=== PATIENT | female | born 1955 | race Asian ===

== ENCOUNTER 2018-02-11 20:35 | Observation (INO) | payer OTHER ==
[~2018-02-11] VITALS: Ht 162.6 cm; Wt 61.0 kg
[2018-02-11 20:55] VITALS: BP 106/60
[2018-02-11 21:30] VITALS: BP 112/62; TEMP 99.6
[2018-02-11 21:33] LABS: PLATELET COUNT 131 K/uL (152-353)
[2018-02-11 21:38] LABS: POTASSIUM 3.3 mmol/L (3.6-5.2)
[2018-02-11 22:00] VITALS: BP 120/63; TEMP 99.5
[2018-02-12 04:00] VITALS: BP 101/57; TEMP 98.5
[2018-02-12 05:39] VITALS: BP 115/64; TEMP 99.1; Ht 162.6 cm; Wt 61.0 kg
[2018-02-12 08:00] VITALS: BP 100/53; TEMP 97.9
[2018-02-12 12:10] VITALS: BP 110/62; TEMP 98.1
[2018-02-12 16:00] VITALS: BP 102/50; TEMP 98.5
[2018-02-12] MEDS ORDERED: LETAIRIS10 MG PO (16:17)
[2018-02-12] MEDS ORDERED: REVATIO20 MG PO (16:18)
[2018-02-12] MEDS ORDERED: SPIRONOLACT25 MG PO ×2 (16:19→16:21)
[2018-02-12] MEDS ORDERED: AMLO2.5T PO (16:19)
== END 2018-02-12 18:28 | disposition home or self-care (01) ==
LOC: ED 20:35 → MED/SURG 23:04
PROVIDERS: ADMIT Specialist
DX: I27.20 Pulmonary hypertension, unspecified (principal); R05 Cough; R00.0 Tachycardia, unspecified; R06.02 Shortness of breath
CPT/HCPCS: 36415; 36600; 80048; 82805; 83735; 83880; 84100; 84484; 85027; 94640; 94664; 94760; 96367; 96374; 99220; 99284; G0378; J0696; J2930

== ENCOUNTER 2018-06-22 15:39 | Outpatient (CLI) | payer OTHER ==
[~2018-06-22 15:39] MED LIST: AMLO2.5T PO; LETAIRIS10 MG PO; REVATIO20 MG PO; SPIRONOLACT25 MG PO
== END 2018-06-22 23:35 | disposition home or self-care (01) ==
LOC: RAD 15:39
DX: I27.20 Pulmonary hypertension, unspecified (principal)

== ENCOUNTER 2020-09-29 18:21 | Emergency (ER) | payer OTHER ==
[~2020-09-29] VITALS: Ht 160 cm; Wt 72.6 kg
[2020-09-29 18:57] LABS: PLATELET COUNT 148 K/uL (152-353)
[2020-09-29 19:23] LABS: POTASSIUM 4.1 mmol/L (3.6-5.2); SODIUM 139 mmol/L (136-145)
[2020-09-29 21:23] VITALS: BP 124/66; TEMP 97.7
== END 2020-09-29 21:23 | disposition short-term general hospital (02) ==
LOC: ED 18:21
PROVIDERS: Family Medicine
DX: I50.9 Heart failure, unspecified (principal); J18.9 Pneumonia, unspecified organism; R00.1 Bradycardia, unspecified
CPT/HCPCS: 36415; 80053; 82550; 82553; 83605; 83880; 84484; 85027; 93005; 99285

== ENCOUNTER 2021-01-22 20:21 | Observation (INO) | payer OTHER ==
[~2021-01-22] VITALS: Ht 157.5 cm; Wt 54.1 kg
[2021-01-22] VITALS (7 sets, daily range): BP systolic 110–131; BP diastolic 59–86; TEMP 99.2
[2021-01-22 20:37] LABS: PLATELET COUNT 163 K/uL (152-353)
[2021-01-22 21:15] LABS: POTASSIUM 3.8 mmol/L (3.6-5.2)
[2021-01-23] VITALS (30 sets, daily range): BP systolic 85–138; BP diastolic 31–73; TEMP 97.8–98.4; Ht 157.5 cm; Wt 54.1 kg
--- NOTE | 2021-01-23 07:19 | NUR ---
PT ADMITTED FROM ER. WHEELCHAIRED IN. PT ADMITTED WITH CHF. CM SHOWING SINUS ALEC.
--- NOTE | 2021-01-23 08:29 | NUR ---
ASSISTED PT UP TO BS. PT TOLERATED WELL. NO ACUTE DISTRESS NOTED. PT DENIES ANY PROBLEMS OR PAIN AT THIS TIME.
--- NOTE | 2021-01-23 08:30 | NUR ---
COVID SWAB COLLECTED AND SENT TO LAB PER MD ORDERS.
[2021-01-23] MEDS ORDERED: FURO20TA67 PO (08:36)
[2021-01-23] MEDS ORDERED: PACERONE200 MG PO (08:37)
[2021-01-23] MEDS ORDERED: ELIQUIS5 MG PO (08:38)
[2021-01-23] MEDS ORDERED: DEXL60CA4 PO (08:39)
[2021-01-23] MEDS ORDERED: KLOR-CON M1010 MEQ PO (08:41)
[2021-01-23] MEDS ORDERED: BREO ELLIPTA 201 INH INH (08:42)
[2021-01-23] MEDS ORDERED: BUDE1AER5 INH (08:42)
--- NOTE | 2021-01-23 08:49 | NUR ---
PT NOTED TO HAVE HOME MEDS IN PINK AND GREEN PAISLEY BAG AT BS. PT ALSO NOTED TO HAVE BLACK PAIR OF GLASSES AND CELL PHONE WITH MEDICAL BILLING SERVICE, SLIP, UNDERWEAR AND SHIRT AND JACKET ALL AT THE BEDSIDE IN PT BELINGING BAG. PT ALSO HAS PURSE ON BEDSIDE.
[2021-01-23 09:02] LABS: PLATELET COUNT 103 K/uL (152-353)
[2021-01-23 09:08] LABS: POTASSIUM 3.3 mmol/L (3.6-5.2)
--- NOTE | 2021-01-23 13:27 | NUR ---
DR SOTELO CAME BY AND TIMES FOR LASIX CHANGED TO 8 AM AND 1600. ALSO VERIFIED THAT PT DID WEAR O2 AT HOME AT 2L/NC .
--- NOTE | 2021-01-23 15:08 | NUR ---
ECHO REPORT FROM DR DUNAWAY OBTAINED AND PLACED ON CHART. DR SOTELO AWARE.
--- NOTE | 2021-01-23 18:03 | NUR ---
VERIFIED WITH PT PCP PER PT IS ZANDER/KIMMIE HERE IN [place]
--- NOTE | 2021-01-23 18:14 | NUR ---
PT HAD 1000ML OF CLEAR YELLOW URINE PAST 1600 DOSE OF LASIX IV THIS EVENING. PT HAS NO CO THIS SHIFT.
--- NOTE | 2021-01-23 21:20 | NUR ---
PT AWAKE SITTING UP IN BED WITH NO DISTRESS NOTED, DENIES ANY NEEDS AT THIS TIME, RESP RATE NONLABORED, O2 IN USE VIA NC, THORACIC MEDICINE SPECIALIST IN USE, VITALS BEING MONITORED. GAVE NIGHTLY MEDICATIONS, HELD PT'S HOME B/P MED SILDENAFIL DUE TO B/P . WILL MONITOR, RAILS UP, BED IN LOW POSITION, CALL LIGHT IN REACH, ENCOURAGED TO CALL NEEDED.
[2021-01-24] VITALS (9 sets, daily range): BP systolic 93–113; BP diastolic 49–70; TEMP 97.8–98.4
--- NOTE | 2021-01-24 00:15 | NUR ---
PT AWAKE WITH NO ACUTE DISTRESS NOTED, DENIES ANY NEEDS, VITALS BEING MONITORED, O2 IN USE VIA NC, IV LOCK INTACT. PT UP TO BSC THEN BACK TO BED. WILL MONITOR CLOSELY, RAILS UP, BED IN LOW POSITION.
--- NOTE | 2021-01-24 02:00 | NUR ---
RESTING WITH EYES CLOSED, NO S/S OF PAIN OR DISTRESS NOTED, WILL MONITOR, RAILS UP, BED IN LOW POSITION.
--- NOTE | 2021-01-24 04:06 | NUR ---
RESTING IN POSITION OF COMFORT IN BED WITH EYES CLOSED, NO S/S OF PAIN OR DISTRESS NOTED, RESP RATE 18 NONLABORED, SUPERVISOR ROLLER PRINTING IN USE WITH BRADYCARDIA NOTED IN 50s, VITALS BEING MONITORED Q 1 HOUR, IV LOCK INTACT, WILL MONITOR CLOSELY, RAILS UP, BED IN LOW POSITION, CALL LIGHT IN REACH.
[2021-01-24 04:59] LABS: PLATELET COUNT 107 K/uL (152-353)
[2021-01-24 05:15] LABS: POTASSIUM 4.5 mmol/L (3.6-5.2)
--- NOTE | 2021-01-24 06:26 | NUR ---
PT AWAKE SITTING UP IN BED WITH NO S/S OF ACUTE DISTRESS NOTED, DENIES ANY NEEDS, RESP RATE NONLABORED, O2 IN USE VIA NC, VITALS BEING MONITORED, CLINICAL OPERATIONS MANAGER IN USE WITH RATE OF 58, IV SITE INTACT. WILL MONITOR CLOSELY, RAILS UP, BED IN LOW POSITION.
--- NOTE | 2021-01-24 07:52 | NUR ---
DR SOTELO AT MAKING ROUNDS.
--- NOTE | 2021-01-24 10:00 | NUR ---
ALL DISCHARGE INSTRUCTIONS GIVEN AND EXPLAINED TO PT AND PT'S DAUGHTER. PT STATED SHE HAD A FOLLOW UP APPT WITH DR HUMMEL TODAY IN [facility].. INSTRUCTED PT TO KEEP THAT APPT. DAUGHTER IS AWARE.
--- NOTE | 2021-01-24 10:10 | NUR ---
PT LEFT VIA WC WITH DAUGHTER. PT'S HOME MEDS AND SHOES, CELLPHONE AND HEALTH MANAGER AND CLOTHES RETURNED TO PT . HOME MEDS IN PINK AND GREEN BAG RETURNED TO HER AT TIME OF DISCHARGE. NO DISTRESS OR PROBLEMS NOTED AT TIME OF DISCHARGE.
== END 2021-01-24 10:10 | disposition home or self-care (01) ==
LOC: ED 20:21 → PCU 01-23 02:00
PROVIDERS: Internal Medicine Endocrinology, Diabetes & Metabolism; ADMIT Family Medicine; ATTEND Internal Medicine
DX: I50.23 Acute on chronic systolic (congestive) heart failure (principal); I10 Essential (primary) hypertension; I48.91 Unspecified atrial fibrillation; J90 Pleural effusion, not elsewhere classified; R18.8 Other ascites
CPT/HCPCS: 36415; 80048; 80053; 81000; 82550; 83880; 84484; 85027; 87635; 93005; 94760; 96374; 99220; 99285; G0378; J1940; J3490; U0003

== ENCOUNTER 2021-02-20 10:23 | Emergency (ER) | payer OTHER ==
[~2021-02-20] VITALS: Ht 157.5 cm; Wt 56.7 kg
[~2021-02-20 10:23] MED LIST changes: +BREO ELLIPTA 201 INH INH; +BUDE1AER5 INH; +DEXL60CA4 PO; +ELIQUIS5 MG PO; +FURO20TA67 PO; +KLOR-CON M1010 MEQ PO; +PACERONE200 MG PO
[2021-02-20 10:26] VITALS: TEMP 97.1
[2021-02-20 11:00] LABS: POTASSIUM 4.2 mmol/L (3.6-5.2); SODIUM 141 mmol/L (136-145)
[2021-02-20 11:01] LABS: PLATELET COUNT 121 K/uL (152-353)
[2021-02-20 12:40] VITALS: BP 117/71
== END 2021-02-20 13:08 | disposition home or self-care (01) ==
LOC: ED 10:23
PROVIDERS: Family Medicine
DX: I50.9 Heart failure, unspecified (principal); R10.30 Lower abdominal pain, unspecified; Z20.822 Contact with and (suspected) exposure to COVID-19
CPT/HCPCS: 36415; 80053; 82150; 82550; 83690; 83880; 84484; 85027; 85379; 87635; 93005; 94664; 96374; 96375; 99284; J1940; J2930; Q9963; U0003

== ENCOUNTER 2021-04-02 16:13 | Outpatient (CLI) | payer OTHER ==
[2021-04-02 17:05] LABS: POTASSIUM 3.8 mmol/L (3.6-5.2)
== END 2021-04-02 19:29 | disposition home or self-care (01) ==
LOC: LABW 16:13
PROVIDERS: ATTEND Specialist
DX: I27.21 Secondary pulmonary arterial hypertension (principal); R60.0 Localized edema; R06.09 Other forms of dyspnea; R35.8 Other polyuria
CPT/HCPCS: 36415; 80048; 83880

== ENCOUNTER 2021-04-14 16:56 | Emergency (ER) | payer OTHER ==
[2021-04-22 09:47] LABS: PARTIAL THROMBOPLASTIN TIME 27.7 SECONDS (24.5-33.6)
[2021-04-22 09:48] LABS: POTASSIUM 4.3 mmol/L (3.6-5.2); SODIUM 144 mmol/L (136-145)
[2021-04-22 09:49] LABS: PLATELET COUNT 111 K/uL (152-353)
== END 2021-04-14 18:23 | disposition home or self-care (01) ==
LOC: ED 16:56
PROVIDERS: Hospitalist
DX: I50.9 Heart failure, unspecified (principal); J44.1 Chronic obstructive pulmonary disease with (acute) exacerbation; Z20.822 Contact with and (suspected) exposure to COVID-19
CPT/HCPCS: 36415; 80053; 81000; 82553; 83880; 84484; 85027; 85610; 85730; 87635; 96374; 96375; 99284; J1940; J2405; J2930; U0003

== ENCOUNTER 2021-04-18 17:12 | Outpatient (CLI) | payer OTHER ==
[2021-04-18 18:17] LABS: POTASSIUM 4.5 mmol/L (3.6-5.2)
== END 2021-04-18 23:59 | disposition home or self-care (01) ==
LOC: LABW 17:12
PROVIDERS: ATTEND Nurse Practitioner Adult Health
DX: R06.02 Shortness of breath (principal); Z79.899 Other long term (current) drug therapy; R00.2 Palpitations
CPT/HCPCS: 36415; 80048; 84436; 84443; 84479

== ENCOUNTER 2021-05-12 13:01 | Emergency (ER) | payer OTHER ==
[~2021-05-12] VITALS: Ht 157.5 cm; Wt 54.4 kg
[2021-05-12] MEDS ORDERED: SPIRONOLACT25 MG PO (13:15)
[2021-05-12] MEDS ORDERED: METO2.5T3 PO (13:16)
[2021-05-12] MEDS ORDERED: FERROUS SULF325 MG PO (13:16)
[2021-05-12] MEDS ORDERED: FURO40TA93 PO (13:16)
[2021-05-12 13:55] LABS: PLATELET COUNT 175 K/uL (152-353)
[2021-05-12 14:12] LABS: POTASSIUM 4.4 mmol/L (3.6-5.2)
[2021-05-12 16:09] VITALS: BP 104/52; TEMP 98.3
== END 2021-05-12 16:40 | disposition home or self-care (01) ==
LOC: ED 13:01
PROVIDERS: Hospitalist
DX: I50.9 Heart failure, unspecified (principal); K21.9 Gastro-esophageal reflux disease without esophagitis
CPT/HCPCS: 80053; 81000; 82150; 83690; 84484; 85027; 93005; 96374; 96375; 99284; J1940; J2405

== ENCOUNTER 2021-05-15 14:34 | Outpatient (CLI) | payer OTHER ==
[~2021-05-15 14:34] MED LIST changes: +FERROUS SULF325 MG PO; +FURO40TA93 PO; +METO2.5T3 PO
[2021-05-15 14:58] LABS: POTASSIUM 3.9 mmol/L (3.6-5.2)
== END 2021-05-15 23:41 | disposition home or self-care (01) ==
LOC: LAB 14:34
PROVIDERS: ATTEND Nurse Practitioner Adult Health
DX: R35.8 Other polyuria (principal); Z79.899 Other long term (current) drug therapy
CPT/HCPCS: 80048

== ENCOUNTER → 2021-05-21 | Day surgery (SDC) | payer OTHER ==
[~2021-05-21] VITALS: Ht 167.6 cm; Wt 54.4 kg
[~2021-05-21] MED LIST changes: +ALBUTEROL108 MCG/AC INH; +ASPIRIN LOW81 MG PO; +ONDANSETRON HYDR4 MG PO
[2021-05-21 10:00] LABS: PLATELET COUNT 204 K/uL (152-353)
== END ==
LOC: INF 09:00 → EDSTATUS 09:00 → OR 09:01 → INF 05-22 09:00
PROVIDERS: ATTEND Internal Medicine Endocrinology, Diabetes & Metabolism
PROC: 05HY33Z Insertion of Infusion Device into Upper Vein, Percutaneous Approach (ICD-10-PCS; principal; 2021-05-21)
PROC: B54NZZA Ultrasonography of Left Upper Extremity Veins, Guidance (ICD-10-PCS; 2021-05-21)
DX: I38 Endocarditis, valve unspecified (principal)
CPT/HCPCS: 36415; 36569; 80053; 85027; 86140; 87040; 96365; 96375; C1751; J0696

== ENCOUNTER 2021-05-22 10:52 | Outpatient (CLI) | payer OTHER ==
[~2021-05-22] VITALS: Ht 167.6 cm; Wt 54.4 kg
[~2021-05-22 10:52] MED LIST changes: -ALBUTEROL108 MCG/AC INH; -ASPIRIN LOW81 MG PO; -ONDANSETRON HYDR4 MG PO
[2021-05-22 11:10] VITALS: BP 108/55; TEMP 98.9
== END 2021-05-22 12:45 | disposition home or self-care (01) ==
LOC: INF 10:52
PROVIDERS: ATTEND Internal Medicine Endocrinology, Diabetes & Metabolism
DX: I38 Endocarditis, valve unspecified (principal)
CPT/HCPCS: 96365; 96375; J0696

== ENCOUNTER 2021-05-23 01:29 | Emergency (ER) | payer OTHER ==
[~2021-05-23] VITALS: Ht 162.6 cm; Wt 54.4 kg
[2021-05-23 02:30] LABS: PLATELET COUNT 192 K/uL (152-353)
[2021-05-23 02:43] LABS: POTASSIUM 3.9 mmol/L (3.6-5.2); SODIUM 137 mmol/L (136-145)
[2021-05-23 03:36] VITALS: BP 117/76; TEMP 98.6
== END 2021-05-23 03:36 | disposition home or self-care (01) ==
LOC: ED 01:29
PROVIDERS: Family Medicine
DX: I50.9 Heart failure, unspecified (principal); I48.91 Unspecified atrial fibrillation
CPT/HCPCS: 36415; 80053; 82553; 83605; 83880; 84484; 85027; 93005; 96374; 99284; J1940

== ENCOUNTER 2021-05-23 10:32 | Outpatient (CLI) | payer OTHER ==
[~2021-05-23] VITALS: Ht 167.6 cm; Wt 54.4 kg
[2021-05-23 10:47] VITALS: BP 117/59; TEMP 97.9
== END 2021-05-23 20:32 | disposition home or self-care (01) ==
LOC: INF 10:32
PROVIDERS: ATTEND Internal Medicine Endocrinology, Diabetes & Metabolism
DX: I38 Endocarditis, valve unspecified (principal)
CPT/HCPCS: 96365; 96375; J0696

== ENCOUNTER 2021-05-24 11:10 | Outpatient (CLI) | payer OTHER ==
[~2021-05-24] VITALS: Ht 167.6 cm; Wt 54.4 kg
[2021-05-24 12:10] VITALS: BP 97/47; TEMP 98.4
[2021-05-25] MEDS ORDERED: ONDANSETRON HYDR4 MG PO (18:42)
[2021-05-25] MEDS ORDERED: ASPIRIN LOW81 MG PO (18:44)
[2021-05-25] MEDS ORDERED: ALBUTEROL108 MCG/AC INH (18:45)
[2021-05-25] MEDS ORDERED: BREO ELLIPTA 201 INH INH (18:46)
== END 2021-05-24 19:58 | disposition home or self-care (01) ==
LOC: INF 11:10
PROVIDERS: ATTEND Internal Medicine Endocrinology, Diabetes & Metabolism
DX: I38 Endocarditis, valve unspecified (principal)
CPT/HCPCS: 96365; J0696

== ENCOUNTER 2021-05-24 12:11 | Inpatient (IN) | payer OTHER ==
[2021-05-24] VITALS (11 sets, daily range): BP systolic 83–113; BP diastolic 48–60; TEMP 97.6–98.9; Ht 162.6 cm; Wt 59.0 kg
[~2021-05-24] VITALS: Ht 162.6 cm; Wt 59.0 kg
[2021-05-24 12:47] LABS: PLATELET COUNT 173 K/uL (152-353); POTASSIUM 4.6 mmol/L (3.6-5.2); SODIUM 136 mmol/L (136-145)
[2021-05-24 12:58] LABS: PARTIAL THROMBOPLASTIN TIME 34.3 SECONDS (24.5-33.6)
--- NOTE | 2021-05-24 19:48 | NUR ---
05/24/21 1730 TO ROOM 1112 VIA WHEELCHAIR DX CHESTPAIN/R/O AMI.ALERT ORIENTED TO ROOM.TELE PLACED ON PATIENT.CC 05/24/21 194 PT AMBULATED TO RESTROOM GENERALIZED WEAKNESS.CC
[2021-05-25 00:03] VITALS: BP 112/65; TEMP 97.7
[2021-05-25 04:00] VITALS: BP 109/60; TEMP 98.1
--- NOTE | 2021-05-25 07:26 | NUR ---
EKG COMPLETED. DISCUSSED WITH NURSING AND PLACED ON PT CHART.
[2021-05-25 08:00] VITALS: BP 108/57; TEMP 97.9
--- NOTE | 2021-05-25 11:14 | NUR ---
INFORMED MD OF PT BEING DIZZY THIS AM, DR. HEARD ORDERS MECLIZINE 25MG PO Q6 HRS PRN, NO FURTHER ORDERS GIVEN
[2021-05-25 12:00] VITALS: BP 114/68; TEMP 98.1
--- NOTE | 2021-05-25 13:44 | NUR ---
1120- RT ATTEMPTED TO GIVE NEB. PT REFUSED STATING SHE WAS DIZZY. SPO2 AT 86% ON 3LPM NC. RT INCREASED FIO2 TO 4.5LPM AND ADDED HUMIDITY. SPO2 NOW AT 92%
[2021-05-25 16:00] VITALS: BP 103/64; TEMP 98.1
[2021-05-25 18:09] LABS: PLATELET COUNT 170 K/uL (152-353)
[2021-05-25 18:27] LABS: POTASSIUM 4.1 mmol/L (3.6-5.2)
[2021-05-25] MEDS ORDERED: ONDANSETRON HYDR4 MG PO (18:42)
[2021-05-25] MEDS ORDERED: ASPIRIN LOW81 MG PO (18:44)
[2021-05-25] MEDS ORDERED: ALBUTEROL108 MCG/AC INH (18:45)
[2021-05-25] MEDS ORDERED: BREO ELLIPTA 201 INH INH (18:46)
[2021-05-25 20:00] VITALS: BP 114/67; TEMP 98.7
[2021-05-26 00:20] VITALS: BP 122/67; TEMP 98.6
[2021-05-26 04:00] VITALS: BP 123/63; TEMP 98.3
[2021-05-26 05:28] LABS: PLATELET COUNT 128 K/uL (152-353)
[2021-05-26 05:47] LABS: POTASSIUM 3.8 mmol/L (3.6-5.2)
[2021-05-26 08:00] VITALS: BP 121/60; TEMP 98.1
[2021-05-26 12:00] VITALS: BP 125/61; TEMP 98.1
[2021-05-26 16:00] VITALS: BP 133/68; TEMP 98
[2021-05-26 20:00] VITALS: BP 113/61; TEMP 98.4
[2021-05-27] VITALS: BP 110/52; BP 128/61; TEMP 98.2; TEMP 98.3
[2021-05-27 04:00] VITALS: BP 112/56; TEMP 97.7
[2021-05-27 05:11] LABS: PLATELET COUNT 142 K/uL (152-353)
--- NOTE | 2021-05-27 05:24 | NUR ---
0300- Patient c/o feeling sob, and upon checking, O2 sat was found to be between 88-89%. Patient was assisted with sitting up on the side of the bed, and respiritory was called to bedside. Patient was changed to raiza-mask, @ 15l/30%, and sats came up to 92. Patient stated, "that she felt a little better and wasn't sob any more". She was assisted back to bed, and hob is elevated at 45%. Patient's O2 is being monitored, and call light is within reach. No acute distess noted. Tele is also being monitored at nurses station.
[2021-05-27 08:00] VITALS: BP 101/62; TEMP 97.5
[2021-05-27 12:00] VITALS: BP 127/62; TEMP 97.4
--- NOTE | 2021-05-27 12:41 | NUR ---
PT CALLED TO THE NURSE'S STATION ASKING TO SEE THE DOCTOR. FILTER PRESS TENDER WENT TO PT'S ROOM AND PT STATED "I FEEL REALLY BAD", AFTER FILTER PRESS TENDER BEGAN TO QUESTION ABOUT SYMPTOMS PT STATED " I AM NAUSEOUS". PRN DOSE OF ZOFRAN WAS GIVEN VIA PICC LINE. PT ASKED AGAIN TO SEE THE DOCTOR. DOCTOR HAS BEEN NOTIFIED OF PT'S REQUEST.
--- NOTE | 2021-05-27 12:53 | NUR ---
05/27/21 0900 PT VENTIMASK FROM 15 LITERS TO NS AT 5LPM FOR PT TO EAT PER RESPIRATORY.OXYGEN SATURATION 89 PERCENT. 05/27/21 0950 RESP NOTIFIED OF PT BEING PUT BACK ON VENTIMASK AT 15 LITERS IS 89 PERCENT.CC
[2021-05-27 16:00] VITALS: BP 129/68; TEMP 98
--- NOTE | 2021-05-27 16:10 | NUR ---
PT CALLED FOR ASSISTANCE TO THE BEDSIDE COMMODE. PT WAS VERY WEAK AND SHORT OF BREATH DURING TRANSFER WHILE WEARING A VENTI MASK. PT SAT ON THE BEDSIDE COMMODE AND VOIDED 100 ML OF SONIA URINE. AFTER TRANSFER TO THE BED PT STATED "I JUST DONT KNOW WHAT IS WRONG WITH ME". PT ASKED FOR HELP PUTTING HER LEGS IN THE BED. AFTER PLACING PT'S LEGS IN THE BED PT WAS TOO WEAK TO ADJUST HERSELF IN THE BED. FIRE LOSS PREVENTION ENGINEER ADJUSTED PT IN BED UNTIL PT WAS IN COMFORTABLE POSITION. PT WAS LEFT IN LOW FOWLERS WITH CALL LIGHT WITHIN REACH.
[2021-05-27 16:14] LABS: POTASSIUM 5.1 mmol/L (3.6-5.2)
--- NOTE | 2021-05-27 16:39 | NUR ---
PT CALLED TO SPEAK TO HER NURSE. WHEN APARTMENT RENTAL AGENT WENT INTO PT'S ROOM PT STATED "I CANNOT BREATHE IN THIS MASK IS THERE SOMETHING ELSE I CAN USE". APARTMENT RENTAL AGENT CONTACTED RT AND PT IS BEING SWITCHED TO A NONREBREATHER MASK.
--- NOTE | 2021-05-27 16:48 | NUR ---
PT PLACED ON NRB AND SPO2 IS 95%, PT WAS SOB. WILL CONTINUE TO MONITOR.
[2021-05-27 20:00] VITALS: BP 126/67; TEMP 96.6
--- NOTE | 2021-05-27 22:15 | NUR ---
PM MEDS AND BREATHING TREATMENT GIVEN AT THIS TIME. PT. TOLERATED WELL. PT. SATTING 89% AT 5LPM. RT NOTIFIED AT THIS TIME. BILATERAL LOWER EXTREMITY EDEMA VISUALIZED AT THIS TIME. PT. STATES THAT PT. "I'M IN PAIN, HELP ME" PACKAGE PICK UP EXPLAINED HE COULD POSSIBLY COULD OBTAIN A ONE TIME ORDER. PT. SITTING UP IN A HIGH-FOWLERS POSITION WITH SIDE RAILS UP TIMES TWO WITH SIDE RAILS UP TIMES TWO WITH BED IN LOWEST POSITION WITH CALL LIGHT WITHIN REACH. WILL ADDRESS PAIN AND 02 SATURATION.
[2021-05-28] VITALS: BP 128/61; TEMP 98.2
--- NOTE | 2021-05-28 00:50 | NUR ---
DR GOMEZ- ER PHYSICIAN NOTIFIED OF PT COMPLAINTS OF FEELING CHEST PRESSURE, DIZZINESS AND NAUSEOUS AT THIS TIME. PATIENT FINANCIAL SERVICES COORDINATOR EXPLAINED PT'S PRN NORCO WAS NOT AVAILABLE TO GIVE YET. EXPLAINED PT'S MEDICAL HX AND ALLERGIES TO PHYSICIAN AT THIS TIME. PHYSICIAN GAVE A ONE TIME ORDER TO GIVE MORPHINE 2MG IVP ONE TIME DOSE ALONG WITH ZOFRAN 4 MG IVP. ORDERS NOTED AND CARRIED OUT. WILL CONTINUE TO MONITOR FOR ANY ACUTE CHANGES.
--- NOTE | 2021-05-28 01:03 | NUR ---
PLACED PT ON NRB @ 100% NURSE Maddy BOND, JAILER/TRAINING OFFICER NOTIFIED.
--- NOTE | 2021-05-28 01:05 | NUR ---
PT. PLACED ON NRB MASK AT 15L @ 100% DUE TO A OXYGEN SATURATION OF 90%. RT-RAQUEL MOTTA NOTIFIED HIGHWALL DRILL OPERATOR AT THIS TIME.
[2021-05-28 04:00] VITALS: BP 118/58; TEMP 97
[2021-05-28 05:38] LABS: PLATELET COUNT 138 K/uL (152-353)
[2021-05-28 06:08] LABS: POTASSIUM 4.8 mmol/L (3.6-5.2)
--- NOTE | 2021-05-28 06:15 | NUR ---
REYES FROM LAB CALLED WITH A CRITICAL LAB VALUE - LACTIC ACID 5.0 READ TO DRAWING IN MACHINE TENDER HELPER
[2021-05-28 08:00] VITALS: BP 117/64; TEMP 96.9
--- NOTE | 2021-05-28 11:27 | NUR ---
I spoke with pts daughter, Anahy Jackson [phone] Turner's request to discuss discharge home on hospice. Per Anahy, she and tamra brother, Grant Maciel [phone] are the only 2 children of Mrs. Stanford. I presented a list to Anahy and she is requesting [facility] [phone], i am faxing them at [phone], i have spoke with Sandra who will call daughter and will arrange for home equipment and will let us know when she is ready for transport.
[2021-05-28 12:00] VITALS: BP 122/69; TEMP 96.4
[2021-05-28 12:11] VITALS: BP 122/69; TEMP 96.4
--- NOTE | 2021-05-28 20:25 | NUR ---
0950 PT REQUESTED TO SIT ON EDGE OF BED. STAFF ASSISTED PT TO SITTING POSITION. PT C/O DIZZINESS AND FELL ON HER SIDE TOWARD THE HOB. STAFF X2 ASSISTED PT ONTO BED. NOTIFIED AND CAME TO BEDSIDE TO ASSESES PT. VS WNL PT DENIES PAIN. 1345 PT C/O PAIN "ALL OVER" NORCO 5/325 PULLED AND ATTEMPTED TO ADMINISTER PT UNABLE TO SWALLOW PO MED. NOTIFIED NEW ORDER GIVEN FOR MORPHINE 1 MG IVPX1 DOSE. 1455 MORPHINE ANDN ZOFRAN REMOVED FROM OMNICELL. UPON ENTERING ROOM PT RESP SHALLOW AND 13 BREATHS PER MINUTE. I SPOKE TO FAMILY ASK IF THEY STILL WANTER HER TO HAVE IT FAMILY REFUSED MORPHINE AND ALLOWED ZOFRAN 4MG TO BE ADMINISTERED. 1528 POCKET SETTER LOCKSTITCH CALLED TO PT ROOM PT NOTED TO BE UNRESPONSIVE. UNABLE TO LOCATE CAROTID, RADIAL OR FEMORAL PULSE. CALLED FOR CRASH CART FAMILY AND MRS. ALVES (NEXT OF KIN) GAVE VERBAL DNR TO MYSELF AND KETTY BLANCA LPN. CRASH CART REMOVED FROM ROOM. NOTIFIED . 1532 MD ARRIVED AND PRONOUNCED PT 1620 PRIYA CHAMBERS BOTTOMING MACHINE OPERATOR NOTIFIED GAVE OK TO NOTIFY HOME. OTHER STAFF NOTIFED [facility] . 1632 HOME CALLED FACILITY TO INFORM [facility] OF ETA. 1645 POST MORTEM CARE PROVIDED. 1703 [employer] NOTIFIED AND PAPER WORK COMPLETED PER POLICY. 1730 HOME LEFT FACILITY WITH PT PERSONAL BELONGINGS ALREADY GIVEN TO FAMILY INCLUDING PT HOME MEDICATIONS. RESP ABSENT,
== END 2021-05-28 15:32 | disposition expired | DRG 315 ==
LOC: ED 12:11 → MED/SURG 14:00
PROVIDERS: Hospitalist; ADMIT Internal Medicine; ATTEND Internal Medicine
DX: I27.20 Pulmonary hypertension, unspecified (principal); I38 Endocarditis, valve unspecified; N17.8 Other acute kidney failure; R07.89 Other chest pain; I48.91 Unspecified atrial fibrillation; I11.0 Hypertensive heart disease with heart failure; I50.9 Heart failure, unspecified; E05.80 Other thyrotoxicosis without thyrotoxic crisis or storm; K21.9 Gastro-esophageal reflux disease without esophagitis
CPT/HCPCS: 36415; 80048; 80053; 81000; 82248; 82550; 82553; 83605; 83880; 84439; 84443; 84484; 85007; 85027; 85610; 85730; 87635; 93005; 94640; 94664; 94760; 96374; 99284; J0696; J1650; J1940; J2270; J2405; J3490; U0003